=== PATIENT | female | born 1985 | race Caucasian/White ===

== ENCOUNTER → 2018-07-07 | Outpatient (REF) ==
[~2018-07-07] MED LIST: FLINTSTONE VITAMINS; NO HOME MEDICATIONS; NORCO 325 MG-51 TAB PO; PEPCID 20MG TAB20 MG PO; TYLENOL 500MG500 MG PO; ZOFRAN 4MG T4 MG/TAB PO; ZOFRAN ODT4 MG PO; [UNRECOGNIZED DRUG - CODE]
[2018-07-07 13:02] LABS: C-REACTIVE PROTEIN < 0.5 mg/dL (0.0-0.9)
== END ==
LOC: ZLAB.WCH 12:34
PROVIDERS: Family Medicine
DX: Z01.89 Encounter for other specified special examinations (principal)

== ENCOUNTER 2020-05-02 10:04 | Emergency (ER) | payer BC ==
[~2020-05-02] VITALS: Ht 167.6 cm; Wt 68.2 kg
[2020-05-02 10:12] VITALS: TEMP 97.9
[2020-05-02] MEDS ORDERED: NORCO 325 MG-51 TAB PO (12:33)
[2020-05-02 12:39] VITALS: BP 125/74; PULSE 81
== END 2020-05-02 12:40 | disposition home or self-care (01) ==
LOC: COL.ER 10:04
DX: S30.0XXA Contusion of lower back and pelvis, initial encounter (principal); W10.9XXA Fall (on) (from) unspecified stairs and steps, initial encounter
CPT/HCPCS: J1885

== ENCOUNTER 2020-05-04 13:19 | Emergency (ER) | payer BC ==
[~2020-05-04] VITALS: Ht 167.6 cm; Wt 68.2 kg
[2020-05-04 13:31] VITALS: TEMP 97.7
[2020-05-04 14:40] LABS: BASO % 0.6 % (0.0-2.0); EOS % 0.4 % (0-4.0); GRAN # 4.2 (1.4-6.5); GRAN % 59.2 % (42.2-75.2); HEMATOCRIT 37.6 % (37.0-47.0); HEMOGLOBIN 12.5 g/dl (12.5-16.0); LYMPH # 2.4 (1.2-3.4); LYMPH % 33.8 % (20.0-51.0); MEAN CELL VOLUME 94 fl (80.0-100.0); MEAN CORPUSCULAR HEMOGLOBIN 31 pg (27.0-31.0); MEAN CORPUSCULAR HGB CONC 33 g/dl (33.0-37.0); MEAN PLATELET VOLUME 9.9 fl (7.4-10.4); MONO # 0.4 (0.1-0.6); MONO % 5.9 % (1.7-9.3); PLATELET COUNT 236 K/mm3 (130-400); RED BLOOD COUNT 4.01 M/mm3 (4.10-5.30); REDCELL DISTRIBUTION WIDTH-CV 12.9 % (11.5-14.5)
[2020-05-04 14:49] LABS: ALBUMIN 3.8 gm/dL (3.5-5.0); BILIRUBIN,TOTAL 0.8 mg/dL (0.0-1.0); CALCIUM 8.9 mg/dL (8.4-10.2); CREATININE, serum 0.78 (0.52-1.25); POTASSIUM 3.9 mmol/L (3.4-5.0); TOTAL PROTEIN 6.9 gm/dL (6.4-8.2)
[2020-05-04 16:46] VITALS: BP 120/77; PULSE 75
[2020-05-05] MEDS ORDERED: ZITHROMAX500 M2 PO (09:47)
== END 2020-05-04 16:57 | disposition home or self-care (01) ==
LOC: COL.ER 13:19
PROVIDERS: Physician Assistant
DX: N92.0 Excessive and frequent menstruation with regular cycle (principal); Z32.02 Encounter for pregnancy test, result negative
CPT/HCPCS: J7030

== ENCOUNTER 2021-12-21 12:07 | Day surgery (SDC) | payer BC ==
[~2021-12-21] VITALS: Ht 167.6 cm; Wt 73.6 kg
[2021-12-21] VITALS (12 sets, daily range): BP systolic 106–149; BP diastolic 62–80; PULSE 46–69; TEMP 98.3
[~2021-12-21 12:07] MED LIST changes: +ZITHROMAX500 M2 PO
[2021-12-21 13:26] LABS: HEMATOCRIT 41.8 % (37.0-47.0); MEAN CELL VOLUME 90 fl (80.0-100.0); MEAN CORPUSCULAR HEMOGLOBIN 30 pg (27-31); MEAN CORPUSCULAR HGB CONC 34 g/dl (33.0-37.0); MEAN PLATELET VOLUME 9.8 fl (7.4-10.4); PLATELET COUNT 266 K/mm3 (130-400); RED BLOOD COUNT 4.67 M/mm3 (4.10-5.30); REDCELL DISTRIBUTION WIDTH-CV 12.7 % (11.5-14.5)
[2021-12-21] MEDS ORDERED: EXCEDRIN TENSIO1 CAP PO (13:26)
[2021-12-21] MEDS ORDERED: ASPIRIN 81M81 MG/TA2 PO (13:28)
[2021-12-21] MEDS ORDERED: MELATONIN5 M1 SL (13:29)
[2021-12-21 13:39] LABS: INR 1.1 (0.8-3.0); PROTHROMBIN TIME 12.3 SECONDS (9.7-12.8)
[2021-12-21 13:41] LABS: PARTIAL THROMBOPLASTIN TIME 35.8 SECONDS (26.0-37.0)
[2021-12-21 13:42] LABS: CALCIUM 8.6 mg/dL (8.4-10.2); CREATININE, serum 0.77 mg/dL (0.57-1.11); POTASSIUM 4.1 mmol/L (3.5-4.5)
--- NOTE | 2021-12-21 13:55 | NUR ---
Pt to procedure.Report to Chanda Pineda.
--- NOTE | 2021-12-21 14:58 | NUR ---
Pt returned from procedure,report from Chanda Pineda.
--- NOTE | 2021-12-21 17:24 | NUR ---
All air released from band in 2-3 ml incriments.No bleeding at site observed.Discharge instructions given to pt.Pt verbalizes understanding.Pt escorted out via wheelchair by this nurse.
== END 2021-12-21 17:28 ==
LOC: COL.CAR 12:07
PROVIDERS: Internal Medicine Cardiovascular Disease
DX: I44.7 Left bundle-branch block, unspecified (principal); I47.1 Supraventricular tachycardia; R00.2 Palpitations; Z82.49 Family history of ischemic heart disease and other diseases of the circulatory system; Z28.310 Unvaccinated for COVID-19; Z28.9 Immunization not carried out for unspecified reason
CPT/HCPCS: J1644; J2250; J3010; Q9967

== ENCOUNTER → 2023-08-18 | Outpatient (CLI) | payer BC ==
[~2023-08-18] MED LIST changes: +ASPIRIN 81M81 MG/TA2 PO; +EXCEDRIN TENSIO1 CAP PO; +Iohexol 300 - 100 ML VIAL IV ONE; +MELATONIN5 M1 SL; +NS 100 ML IV SCH
== END ==
LOC: COL.RAD 07:45
DX: M54.2 Cervicalgia (principal); M79.601 Pain in right arm; R20.2 Paresthesia of skin
CPT/HCPCS: Q9967